=== PATIENT | female | born 1940 | race African-American/Black ===

== ENCOUNTER 2017-02-11 10:20 | Emergency (ER) | payer MEDICARE, OTHER ==
[~2017-02-11] VITALS: Ht 170.2 cm; Wt 69.5 kg
[~2017-02-11 10:20] MED LIST: ACYC200C PO; CALC-724 PO; DILT360C40 PO; FISH1CAP39 PO; INSLAN SQ; METO50 PO; MULT1TAB7 PO; TRIA1CAP2 PO; VALS80TA2 PO; VIT1CAPS2 PO; VITA1CAP PO
[2017-02-11 10:46] LABS: GLUCOSE,POINT OF CARE 185 MG/DL (70-110)
[2017-02-11 11:26] LABS: BASOPHILS % (AUTO) 0.6 % (0.0-2.0); EOSINOPHILS % (AUTO) 1.4 % (1.0-6.0); HEMATOCRIT 41.7 % (36-46); HEMOGLOBIN 13.5 g/dL (12.0-16.0); LYMPHOCYTES % (AUTO) 21.5 % (22.0-44.0); MEAN CORPUSCULAR HEMOGLOBIN 31.6 pg (26.0-34.0); MEAN CORPUSCULAR HGB CONC 32.4 G/dL (31.0-37.0); MEAN CORPUSCULAR VOLUME 97 fL (80-100); MONOCYTES # (AUTO) 0.3 K/uL (0.1-1.0); MONOCYTES % (AUTO) 5.9 % (2.0-9.0); NEUTROPHILS # (AUTO) 3.3 K/uL (1.8-7.7); NEUTROPHILS % (AUTO) 70.6 % (40.0-70.0); PLATELET COUNT (AUTO) 221 K/uL (150-450); RED BLOOD CELL COUNT(AUTO) 4.27 MIL/uL (4.00-5.20); RED CELL DISTRIBUTION WIDTH 14.4 % (11.5-14.5)
[2017-02-11 11:30] LABS: CALCIUM, TOTAL 9.4 mg/dL (8.8-10.5); CREATININE 1.49 mg/dL (0.60-1.30)
[2017-02-11 11:36] LABS: ALBUMIN 3.8 g/dL (3.4-5.0); BILIRUBIN,TOTAL 0.4 mg/dL (0.1-1.0)
[2017-02-11 11:57] LABS: GLUCOSE,POINT OF CARE 172 MG/DL (70-110)
[2017-02-11 12:54] LABS: WHITE BLOOD COUNT (AUTO) 4.7 K/uL (4.5-11.0)
[2017-02-11 13:17] LABS: GLUCOSE,POINT OF CARE 223 MG/DL (70-110)
[2017-02-11 14:57] LABS: GLUCOSE,POINT OF CARE 224 MG/DL (70-110)
[2017-02-11 15:49] VITALS: BP 144/71
== END 2017-02-11 15:50 | disposition home or self-care (01) ==
LOC: EMS 10:27
DX: E11.649 Type 2 diabetes mellitus with hypoglycemia without coma (principal); I10 Essential (primary) hypertension; Z79.4 Long term (current) use of insulin; Z88.5 Allergy status to narcotic agent; Z88.0 Allergy status to penicillin; Z88.2 Allergy status to sulfonamides; Z88.8 Allergy status to other drugs, medicaments and biological substances
CPT/HCPCS: 82962; 99285

== ENCOUNTER 2022-12-12 20:32 | Emergency (ER) | payer MEDICARE, OTHER ==
[~2022-12-12] VITALS: Ht 171.4 cm; Wt 63.6 kg
[~2022-12-12 20:32] MED LIST changes: -ACYC200C PO; +ACYC200C24 PO
[2022-12-12 20:56] LABS: GLUCOMETER DEV NAME(LOC) ERT.5; GLUCOSE,POINT OF CARE 276 MG/DL (70-110)
[2022-12-12 20:58] VITALS: BP 137/72
== END 2022-12-12 21:22 | disposition home or self-care (01) ==
LOC: EMS 20:32
DX: I10 Essential (primary) hypertension (principal); M19.90 Unspecified osteoarthritis, unspecified site; E11.9 Type 2 diabetes mellitus without complications; Z98.51 Tubal ligation status; Z88.0 Allergy status to penicillin; Z88.5 Allergy status to narcotic agent; Z88.2 Allergy status to sulfonamides; Z88.8 Allergy status to other drugs, medicaments and biological substances
CPT/HCPCS: 82962; 99282

== ENCOUNTER 2022-12-30 19:49 | Inpatient (IN) | payer MEDICARE, OTHER ==
[~2022-12-30] VITALS: Ht 170.2 cm; Wt 75.0 kg
[2022-12-30 20:50] LABS: BASOPHILS % (AUTO) 0.4 % (0.0-2.0); EOSINOPHILS % (AUTO) 0 % (1.0-6.0); HEMATOCRIT 37.7 % (36-46); HEMOGLOBIN 12.8 g/dL (12.0-16.0); LYMPHOCYTES # (AUTO) 0.2 K/uL (1.0-4.8); LYMPHOCYTES % (AUTO) 1.1 % (22.0-44.0); MEAN CORPUSCULAR HEMOGLOBIN 32.9 pg (26.0-34.0); MEAN CORPUSCULAR HGB CONC 34.1 G/dL (31.0-37.0); MEAN CORPUSCULAR VOLUME 97 fL (80-100); MONOCYTES # (AUTO) 0.6 K/uL (0.1-1.0); MONOCYTES % (AUTO) 3.6 % (2.0-9.0); PLATELET COUNT (AUTO) 195 K/uL (150-450); RED CELL DISTRIBUTION WIDTH 14.4 % (11.5-14.5)
[2022-12-30 20:52] LABS: NEUTROPHILS % (AUTO) 94.9 % (40.0-70.0)
[2022-12-30 21:04] LABS: ALBUMIN 3.3 g/dL (3.4-5.0); BILIRUBIN,TOTAL 3.5 mg/dL (0.1-1.0); CREATININE 1.26 mg/dL (0.60-1.30); POTASSIUM 3.8 mmol/L (3.5-5.1); TOTAL PROTEIN, SERUM 7.7 g/dL (6.4-8.2)
[2022-12-30 21:50] LABS: APPEARANCE,URINE CLEAR (CLEAR); BILIRUBIN,URINE NEGATIVE (NEGATIVE); GLUCOSE, URINE (UA) >=1000 mg/dL (NEGATIVE); KETONES,URINE TRACE mg/dL (NEGATIVE); LEUKOCYTE ESTERASE ,URINE NEGATIVE (NEGATIVE); NITRATE,URINE NEGATIVE (NEGATIVE); OCCULT BLOOD,URINE NEGATIVE (NEGATIVE); PH,URINE 6.5 (5.0-8.0); PROTEIN,URINE 30-70 mg/dL (NEGATIVE); SPECIFIC GRAVITIY, URINE 1.006 (1.003-1.030)
[2022-12-30 21:58] LABS: BACTERIA,URINE Rare /HPF (None Seen); RBC,URINE 0-2 /HPF (0-2); SQUAMOUS EPITHELIAL CELL,UR Few /LPF (None Seen); WBC,URINE 0-2 /HPF (0-5)
[2022-12-31 00:20] LABS: COVID AG,FIA SOURCE NASAL SWAB
[2022-12-31] MEDS ORDERED: DEXTROSE 50%-WATER 25 GM/50 ML SYRINGE IVP PRN (00:45)
[2022-12-31] MEDS ORDERED: ONDANSETRON HCL 4 MG/2 ML VIAL IVP PRN (00:45)
[2022-12-31] MEDS ORDERED: ACETAMINOPHEN 325 MG TABLET PO PRN (00:45)
[2022-12-31] MEDS ORDERED: MetroNIDAZOLE 500 MG/NACL 100 ML IV ONE ×2 (00:45→02:15)
[2022-12-31] MEDS ORDERED: SODIUM CHLORIDE 0.9% 250 ML IV ONE (00:45)
[2022-12-31] MEDS ORDERED: LEVOFLOXACIN 500 MG/D5% WATER 100 ML IV ONE ×2 (00:45→02:15)
[2022-12-31] MEDS ORDERED: MORPHINE SULFATE 2 MG/ML SYRINGE IVP PRN (00:45)
[2022-12-31] MEDS: SODIUM CHLORIDE 0.9% 1,000 ML IV SCH ×2 (01:05→14:21)
[2022-12-31] MEDS ORDERED: IOHEXOL 350 MG/ML 100 ML VIAL ONE (02:32)
[2022-12-31] MEDS ORDERED: SODIUM CHLORIDE 0.9% 100 ML ONE (02:32)
[2022-12-31] MEDS ORDERED: HYDR25TA84 PO (02:42)
[2022-12-31] MEDS ORDERED: NIFE-46 PO (02:42)
[2022-12-31] MEDS ORDERED: XALA2.5OS OU (02:42)
[2022-12-31] MEDS ORDERED: INSLAN SQ (02:42)
[2022-12-31] MEDS ORDERED: MAGN64TA7 PO (02:42)
[2022-12-31] MEDS ORDERED: METO25 PO (02:42)
[2022-12-31] MEDS ORDERED: ATOR10TA PO (02:42)
[2022-12-31] MEDS ORDERED: LOSA-382 PO (02:42)
[2022-12-31] MEDS ORDERED: ACET-3385 PO (02:42)
[2022-12-31] MEDS ORDERED: ASPI81TA49 PO (02:42)
[2022-12-31] MEDS ORDERED: ACYCLOVIR 200 MG CAPSULE PO SCH (09:00)
[2022-12-31] MEDS ORDERED: METOPROLOL TARTRATE 50 MG TABLET PO SCH (09:00)
[2022-12-31] MEDS ORDERED: CALCIUM OYSTER SHELL 250 MG-VIT D3 125 UNITS[3.125MCG] TABLET PO SCH (09:00)
[2022-12-31] MEDS: DOCUSATE SODIUM 100 MG CAPSULE PO SCH ×2 (09:31→20:34)
[2022-12-31] MEDS: METOPROLOL TARTRATE 25 MG TABLET PO SCH ×2 (09:32→20:34)
[2022-12-31] MEDS: MULTIVITAMINS WITH MINERALS, THERAPEUTIC TABLET PO SCH (09:32)
[2022-12-31] MEDS: VALSARTAN 80 MG TABLET PO SCH ×2 (09:32→20:35)
[2022-12-31] MEDS: VITAMIN B COMPLEX/FOLIC ACID 1 TABLET PO SCH (09:33)
[2022-12-31] MEDS: TRIAMTERENE/HCTZ 37.5-25 MG CAPSULE PO SCH (09:33)
[2022-12-31] MEDS: DILTIAZEM HCL CD 180 MG ER CAPSULE PO SCH (09:33)
[2022-12-31] MEDS: OMEGA-3/DHA/EPA/FISH OIL 1,000 MG CAPSULE PO SCH (09:33)
[2022-12-31 13:54] VITALS: BP 122/62
[2022-12-31] MEDS ORDERED: OMEG-136 PO (15:09)
[2022-12-31] MEDS ORDERED: MULT-1259 PO (15:09)
[2022-12-31] MEDS ORDERED: CALC-1000 PO (15:09)
[2022-12-31] MEDS ORDERED: VITA1TAB22 PO (15:09)
[2022-12-31] MEDS ORDERED: TRIA1CAP87 PO (15:09)
[2022-12-31] MEDS ORDERED: MULT-38 PEG (15:09)
[2022-12-31] MEDS ORDERED: DILT-95 PO (15:09)
[2022-12-31] MEDS ORDERED: PNEUMOCOCCAL VACCINE POLYVALENT 0.5 ML VIAL [PPSV23] IM. ONE (15:15)
[2022-12-31] MEDS ORDERED: *CLINICAL-RX DOSING [ENTER DRUG IN COMMENTS] CLINICAL ONE (18:30)
[2022-12-31] MEDS ORDERED: *CLINICAL-LEVOFLOXACIN IVPB DOSING CLINICAL ONE (18:30)
[2022-12-31] MEDS ORDERED: *CLINICAL-AZTREONAM DOSING CLINICAL ONE (18:30)
[2022-12-31 19:01] LABS: GLUCOMETER DEV NAME(LOC) 6N.2B; GLUCOSE,POINT OF CARE 121 MG/DL (70-110)
[2022-12-31 20:06] VITALS: BP 136/62
[2022-12-31] MEDS: AZTREONAM 1 GM in DEXTROSE 5%-WATER 50 ML IV SCH (20:34)
[2022-12-31] MEDS: INSULIN GLARGINE,HUM.REC.ANLOG 100 UNITS/ML SQ SCH (20:40)
[2022-12-31] MEDS ORDERED: INSULIN GLARGINE,HUM.REC.ANLOG 100 UNITS/ML SQ SCH (21:00)
[2022-12-31] MEDS ORDERED: MetroNIDAZOLE 500 MG TABLET PO SCH (21:00)
[2023-01-01 01:01] LABS: GLUCOMETER DEV NAME(LOC) 6N.1; GLUCOSE,POINT OF CARE 101 MG/DL (70-110)
[2023-01-01] MEDS: AZTREONAM 1 GM in DEXTROSE 5%-WATER 50 ML IV SCH ×3 (04:30→20:13)
[2023-01-01] MEDS: SODIUM CHLORIDE 0.9% 1,000 ML IV SCH (04:31)
[2023-01-01 05:16] VITALS: BP 133/69
[2023-01-01 06:46] LABS: GLUCOMETER DEV NAME(LOC) 6N.1; GLUCOSE,POINT OF CARE 128 MG/DL (70-110)
[2023-01-01 07:26] LABS: BASOPHILS % (AUTO) 0.2 % (0.0-2.0); EOSINOPHILS % (AUTO) 0.6 % (1.0-6.0); HEMOGLOBIN 12.3 g/dL (12.0-16.0); LYMPHOCYTES # (AUTO) 0.6 K/uL (1.0-4.8); LYMPHOCYTES % (AUTO) 8.6 % (22.0-44.0); MEAN CORPUSCULAR HEMOGLOBIN 33.2 pg (26.0-34.0); MEAN CORPUSCULAR HGB CONC 34.1 G/dL (31.0-37.0); MEAN CORPUSCULAR VOLUME 97 fL (80-100); MONOCYTES % (AUTO) 13.8 % (2.0-9.0); NEUTROPHILS # (AUTO) 5.7 K/uL (1.8-7.7); NEUTROPHILS % (AUTO) 76.8 % (40.0-70.0); PLATELET COUNT (AUTO) 171 K/uL (150-450); RED CELL DISTRIBUTION WIDTH 15.1 % (11.5-14.5)
[2023-01-01 07:27] VITALS: BP 133/66
[2023-01-01 07:51] LABS: ALANINE AMINOTRANSFERASE 100 U/L (12-78); ALBUMIN 2.5 g/dL (3.4-5.0); ALKALINE PHOSPHATASE 217 U/L (46-116); ANION GAP 14 mmol/L (8-16); ASPARTATE AMINOTRANSFERASE 77 U/L (15-37); BILIRUBIN,TOTAL 3.8 mg/dL (0.1-1.0); CALCIUM, TOTAL 8.8 mg/dL (8.8-10.5); CARBON DIOXIDE 18 mmol/L (22-29); CHLORIDE 103 mmol/L (98-107); CREATININE 1.01 mg/dL (0.60-1.30); GLOMERULAR FILTR. RATE CALC > 60 mL/min (>60); GLUCOSE,RANDOM 113 mg/dL (70-110); POTASSIUM 3.5 mmol/L (3.5-5.1); SODIUM SERUM 135 mmol/L (136-145); TOTAL PROTEIN, SERUM 6.5 g/dL (6.4-8.2); UREA NITROGEN, BLOOD 11 mg/dL (7-18)
[2023-01-01] MEDS: HEPARIN SODIUM,PORCINE 5,000 UNITS/ML VIAL SQ SCH ×3 (08:00→23:34)
[2023-01-01] MEDS: DILTIAZEM HCL CD 180 MG ER CAPSULE PO SCH (08:39)
[2023-01-01] MEDS: MetroNIDAZOLE 500 MG TABLET PO SCH ×3 (08:39→23:34)
[2023-01-01] MEDS: TRIAMTERENE/HCTZ 37.5-25 MG CAPSULE PO SCH (08:39)
[2023-01-01] MEDS: MULTIVITAMINS WITH MINERALS, THERAPEUTIC TABLET PO SCH (08:39)
[2023-01-01] MEDS: VALSARTAN 80 MG TABLET PO SCH ×2 (08:39→20:13)
[2023-01-01] MEDS: METOPROLOL TARTRATE 25 MG TABLET PO SCH ×2 (08:39→20:13)
[2023-01-01] MEDS: DOCUSATE SODIUM 100 MG CAPSULE PO SCH ×2 (08:39→20:13)
[2023-01-01] MEDS: VITAMIN B COMPLEX/FOLIC ACID 1 TABLET PO SCH (08:39)
[2023-01-01] MEDS: OMEGA-3/DHA/EPA/FISH OIL 1,000 MG CAPSULE PO SCH (08:39)
[2023-01-01] MEDS ORDERED: MEBROFENIN TC99M/MCL ISOTOPE 1 EA INJ INJ ONE (08:50)
[2023-01-01] MEDS ORDERED: SODIUM CHLORIDE 0.9% 1,000 ML ONE (09:55)
[2023-01-01] MEDS ORDERED: SODIUM CHLORIDE 0.9% 1,000 ML IV ONE (12:00)
[2023-01-01] MEDS ORDERED: ONDANSETRON HCL 4 MG/2 ML VIAL IVP ONE (12:00)
[2023-01-01] MEDS ORDERED: LIDOCAINE/PF 2% 5 ML VIAL IM ONE (12:00)
[2023-01-01] MEDS ORDERED: FentaNYL CITRATE PF 100 MCG/2 ML VIAL IVP ONE (12:00)
[2023-01-01] MEDS ORDERED: ROCURONIUM BROMIDE 10 MG/ML 5 ML VIAL IVP ONE (12:00)
[2023-01-01] MEDS ORDERED: GLYCOPYRROLATE 0.2 MG/ML VIAL IM ONE (12:00)
[2023-01-01] MEDS ORDERED: PROPOFOL 1% 20 ML VIAL IVP ONE (12:00)
[2023-01-01 13:26] LABS: GLUCOMETER DEV NAME(LOC) 6N.2B; GLUCOSE,POINT OF CARE 120 MG/DL (70-110)
[2023-01-01] MEDS ORDERED: SUGAMMADEX SODIUM 200 MG/2 ML VIAL IVP ONE (14:56)
[2023-01-01] MEDS ORDERED: FentaNYL CITRATE PF 100 MCG/2 ML VIAL IVP PRN (15:30)
[2023-01-01 16:49] VITALS: BP 138/66
[2023-01-01] MEDS ORDERED: BENZOCAINE/MENTHOL LOZENGE [6 LOZENGES/PACKET] PO PRN (17:15)
[2023-01-01] MEDS ORDERED: BENZOCAINE/MENTHOL LOZENGE PO PRN (17:15)
[2023-01-01 18:11] LABS: GLUCOMETER DEV NAME(LOC) 6N.2B; GLUCOSE,POINT OF CARE 193 MG/DL (70-110)
[2023-01-01 19:35] VITALS: BP 135/79
[2023-01-01] MEDS: INSULIN LISPRO 100 UNITS/ML SQ PRN (20:25)
[2023-01-01] MEDS: INSULIN GLARGINE,HUM.REC.ANLOG 100 UNITS/ML SQ SCH (20:26)
[2023-01-01] MEDS ORDERED: LEVOFLOXACIN 500 MG/D5% WATER 100 ML IV SCH (22:00)
[2023-01-01 23:41] LABS: GLUCOMETER DEV NAME(LOC) 6N.1; GLUCOSE,POINT OF CARE 179 MG/DL (70-110)
[2023-01-02] MEDS: SODIUM CHLORIDE 0.9% 1,000 ML IV SCH ×3 (01:51→20:46)
[2023-01-02] MEDS: AZTREONAM 1 GM in DEXTROSE 5%-WATER 50 ML IV SCH ×3 (04:08→21:55)
[2023-01-02] MEDS: INSULIN LISPRO 100 UNITS/ML SQ PRN ×4 (05:43→20:40)
[2023-01-02 05:49] VITALS: BP 139/74
[2023-01-02 05:56] LABS: GLUCOMETER DEV NAME(LOC) 6N.1; GLUCOSE,POINT OF CARE 153 MG/DL (70-110)
[2023-01-02] MEDS ORDERED: LEVOFLOXACIN 750 MG/D5% WATER 150 ML IV SCH (06:00)
[2023-01-02] MEDS: HEPARIN SODIUM,PORCINE 5,000 UNITS/ML VIAL SQ SCH ×2 (08:00→11:50)
[2023-01-02] MEDS: OXYGEN THERAPY IH SCH ×2 (08:00→20:50)
[2023-01-02 08:44] VITALS: BP 155/77
[2023-01-02] MEDS: MULTIVITAMINS WITH MINERALS, THERAPEUTIC TABLET PO SCH (09:00)
[2023-01-02] MEDS: OMEGA-3/DHA/EPA/FISH OIL 1,000 MG CAPSULE PO SCH (09:00)
[2023-01-02] MEDS: VITAMIN B COMPLEX/FOLIC ACID 1 TABLET PO SCH (09:00)
[2023-01-02] MEDS: DOCUSATE SODIUM 100 MG CAPSULE PO SCH ×2 (09:00→20:46)
[2023-01-02] MEDS: METOPROLOL TARTRATE 25 MG TABLET PO SCH (09:11)
[2023-01-02] MEDS: DILTIAZEM HCL CD 180 MG ER CAPSULE PO SCH (09:11)
[2023-01-02] MEDS: TRIAMTERENE/HCTZ 37.5-25 MG CAPSULE PO SCH (09:11)
[2023-01-02] MEDS: VALSARTAN 80 MG TABLET PO SCH ×2 (09:11→21:55)
[2023-01-02] MEDS: MetroNIDAZOLE 500 MG TABLET PO SCH ×2 (09:11→20:46)
[2023-01-02 09:24] LABS: BASOPHILS % (AUTO) 0.3 % (0.0-2.0); EOSINOPHILS % (AUTO) 0.4 % (1.0-6.0); HEMATOCRIT 34.6 % (36-46); HEMOGLOBIN 11.8 g/dL (12.0-16.0); LYMPHOCYTES # (AUTO) 0.6 K/uL (1.0-4.8); LYMPHOCYTES % (AUTO) 9.8 % (22.0-44.0); MEAN CORPUSCULAR HEMOGLOBIN 32.9 pg (26.0-34.0); MEAN CORPUSCULAR VOLUME 97 fL (80-100); MONOCYTES # (AUTO) 0.9 K/uL (0.1-1.0); MONOCYTES % (AUTO) 14.4 % (2.0-9.0); NEUTROPHILS # (AUTO) 4.8 K/uL (1.8-7.7); NEUTROPHILS % (AUTO) 75.1 % (40.0-70.0); PLATELET COUNT (AUTO) 179 K/uL (150-450); RED BLOOD CELL COUNT(AUTO) 3.57 MIL/uL (4.00-5.20); RED CELL DISTRIBUTION WIDTH 14.8 % (11.5-14.5)
[2023-01-02 16:00] VITALS: BP 146/71
[2023-01-02 18:02] LABS: GLUCOMETER DEV NAME(LOC) 5S.2C; GLUCOSE,POINT OF CARE 162 MG/DL (70-110)
[2023-01-02 19:58] VITALS: BP 157/78
[2023-01-02] MEDS: INSULIN GLARGINE,HUM.REC.ANLOG 100 UNITS/ML SQ SCH (21:00)
[2023-01-02] MEDS ORDERED: METOPROLOL TARTRATE 25 MG TABLET PO SCH (21:00)
[2023-01-02 21:36] LABS: GLUCOMETER DEV NAME(LOC) 5N.1C; GLUCOSE,POINT OF CARE 125 MG/DL (70-110)
[2023-01-02 23:53] VITALS: BP 153/77
[2023-01-03] MEDS: MetroNIDAZOLE 500 MG TABLET PO SCH (03:37)
[2023-01-03 04:20] VITALS: BP 153/82
[2023-01-03] MEDS: AZTREONAM 1 GM in DEXTROSE 5%-WATER 50 ML IV SCH (04:30)
[2023-01-03 04:36] LABS: GLUCOMETER DEV NAME(LOC) 6N.1; GLUCOSE,POINT OF CARE 131 MG/DL (70-110)
[2023-01-03] MEDS: INSULIN LISPRO 100 UNITS/ML SQ PRN (05:53)
[2023-01-03 06:34] LABS: BASOPHILS % (AUTO) 0.7 % (0.0-2.0); EOSINOPHILS % (AUTO) 1.7 % (1.0-6.0); HEMATOCRIT 35.2 % (36-46); HEMOGLOBIN 11.8 g/dL (12.0-16.0); LYMPHOCYTES # (AUTO) 0.8 K/uL (1.0-4.8); LYMPHOCYTES % (AUTO) 15.9 % (22.0-44.0); MEAN CORPUSCULAR HEMOGLOBIN 32.5 pg (26.0-34.0); MEAN CORPUSCULAR HGB CONC 33.7 G/dL (31.0-37.0); MEAN CORPUSCULAR VOLUME 97 fL (80-100); MONOCYTES # (AUTO) 0.6 K/uL (0.1-1.0); MONOCYTES % (AUTO) 13.7 % (2.0-9.0); NEUTROPHILS # (AUTO) 3.2 K/uL (1.8-7.7); PLATELET COUNT (AUTO) 196 K/uL (150-450); RED BLOOD CELL COUNT(AUTO) 3.65 MIL/uL (4.00-5.20); RED CELL DISTRIBUTION WIDTH 14.9 % (11.5-14.5)
[2023-01-03 06:44] LABS: ANION GAP 11 mmol/L (8-16); CALCIUM, TOTAL 8.3 mg/dL (8.8-10.5); CARBON DIOXIDE 20 mmol/L (22-29); CHLORIDE 105 mmol/L (98-107); CREATININE 0.92 mg/dL (0.60-1.30); GLOMERULAR FILTR. RATE CALC > 60 mL/min (>60); GLUCOSE,RANDOM 153 mg/dL (70-110); SODIUM SERUM 136 mmol/L (136-145); UREA NITROGEN, BLOOD 8 mg/dL (7-18)
[2023-01-03 08:04] VITALS: BP 154/76
[2023-01-03] MEDS ORDERED: RINGERS SOLUTION,LACTATED 1,000 ML IV ONE (08:15)
[2023-01-03] MEDS ORDERED: POTASSIUM CHLORIDE 20 MEQ ER TABLET PO PRN (08:45)
[2023-01-03] MEDS ORDERED: POTASSIUM CHL 10 MEQ/WATER 50 ML IV PRN (08:45)
[2023-01-03] MEDS ORDERED: NIFEdipine 60 MG ER TABLET PO SCH (09:00)
[2023-01-03] MEDS: POTASSIUM CHL 10 MEQ/WATER 50 ML IV PRN ×2 (09:04→10:17)
[2023-01-03] MEDS: HEPARIN SODIUM,PORCINE 5,000 UNITS/ML VIAL SQ SCH ×2 (09:09)
[2023-01-03] MEDS ORDERED: METR500 PO (11:08)
[2023-01-03] MEDS ORDERED: LEVO750T68 PO (11:08)
[2023-01-03 11:32] LABS: GLUCOMETER DEV NAME(LOC) 5S.2C; GLUCOSE,POINT OF CARE 149 MG/DL (70-110)
== END 2023-01-03 11:30 | disposition home or self-care (01) | DRG 444 ==
LOC: EMS 19:53 → 5S 12-31 13:30 → 6S 12-31 13:40 → 5S 01-02 15:39
PROVIDERS: ADMIT Internal Medicine; ATTEND Hospitalist
PROC: BF101ZZ Fluoroscopy of Bile Ducts using Low Osmolar Contrast (ICD-10-PCS; 2023-01-01)
PROC: 0FC98ZZ Extirpation of Matter from Common Bile Duct, Via Natural or Artificial Opening Endoscopic (ICD-10-PCS; principal; 2023-01-01 14:15)
DX: K80.63 Calculus of gallbladder and bile duct with acute cholecystitis with obstruction (principal); G93.41 Metabolic encephalopathy; E87.1 Hypo-osmolality and hyponatremia; R65.10 Systemic inflammatory response syndrome (SIRS) of non-infectious origin without acute organ dysfunction; R78.81 Bacteremia; K83.09 Other cholangitis; E11.65 Type 2 diabetes mellitus with hyperglycemia; I10 Essential (primary) hypertension; B96.20 Unspecified Escherichia coli [E. coli] as the cause of diseases classified elsewhere; E78.5 Hyperlipidemia, unspecified; E87.6 Hypokalemia; G89.29 Other chronic pain; F41.9 Anxiety disorder, unspecified; Z20.822 Contact with and (suspected) exposure to COVID-19; Z82.49 Family history of ischemic heart disease and other diseases of the circulatory system; Z79.4 Long term (current) use of insulin; Z83.3 Family history of diabetes mellitus; Z87.440 Personal history of urinary (tract) infections; Z88.0 Allergy status to penicillin; Z88.2 Allergy status to sulfonamides; Z88.6 Allergy status to analgesic agent; Z90.710 Acquired absence of both cervix and uterus; Z88.1 Allergy status to other antibiotic agents
CPT/HCPCS: 74177; 74181; 76700; 78226; 80048; 80053; 81001; 82962; 83605; 83690; 84484; 85025; 87040; 87077; 87081; 87205; 93005; 93306; 99285; A9537; G0238; J1644; J1815; J1956; J2405; J2704; J3010; J3480; J3490; J7030; J7050; J7060; Q9967

== ENCOUNTER 2025-03-09 15:42 | Emergency (ER) | payer MEDICARE, OTHER ==
[~2025-03-09] VITALS: Ht 171.4 cm; Wt 65.9 kg
[~2025-03-09 15:42] MED LIST changes: -ACYC200C24 PO; +AMLO-257 PO; +ATOR10TA69 PO; +CALC-1000 PO; -CALC-724 PO; -DILT360C40 PO; -FISH1CAP39 PO; +LOSA-382 PO; +METF-1211 PO; -METO50 PO; +MULT-1259 PO; -MULT1TAB7 PO; +NIFE90TA65 PO; +OMEG-136 PO; -TRIA1CAP2 PO; -VALS80TA2 PO; -VIT1CAPS2 PO; -VITA1CAP PO; +XALA2.5OS OU; +[UNRECOGNIZED DRUG - CODE] PO
[2025-03-09 15:45] VITALS: BP 102/50; PULSE 91; RESP 18; TEMP 97.7; O2SAT 97
[2025-03-09] MEDS: NAPROXEN 500 MG TABLET PO ONE (16:28)
== END 2025-03-09 17:00 | disposition home or self-care (01) ==
LOC: EMS 15:45
DX: M54.50 Low back pain, unspecified (principal); G89.29 Other chronic pain; F41.9 Anxiety disorder, unspecified; E11.9 Type 2 diabetes mellitus without complications; I10 Essential (primary) hypertension; M19.90 Unspecified osteoarthritis, unspecified site; N28.89 Other specified disorders of kidney and ureter; Z90.710 Acquired absence of both cervix and uterus; Z88.7 Allergy status to serum and vaccine; Z88.5 Allergy status to narcotic agent; Z88.2 Allergy status to sulfonamides; Z88.0 Allergy status to penicillin; Z79.4 Long term (current) use of insulin; Z79.899 Other long term (current) drug therapy; Z98.890 Other specified postprocedural states
CPT/HCPCS: 82962; 99282

== ENCOUNTER 2025-03-30 20:59 | Emergency (ER) | payer MEDICARE, OTHER ==
[~2025-03-30] VITALS: Ht 170.2 cm; Wt 65.9 kg
[~2025-03-30 20:59] MED LIST changes: -AMLO-257 PO; -CALC-1000 PO; -INSLAN SQ; -XALA2.5OS OU
[2025-03-30 21:06] VITALS: BP 164/78; PULSE 104; RESP 15; TEMP 98.1; O2SAT 99
[2025-03-30 21:22] LABS: COVID AG,FIA SOURCE NASAL SWAB
[2025-03-30 21:26] LABS: GLUCOMETER DEV NAME(LOC) ER.7; GLUCOSE,POINT OF CARE 273 MG/DL (70-110)
[2025-03-30 21:42] LABS: INFLUENZA TYPE A NEGATIVE FOR TYPE A (NEGATIVE); INFLUENZA TYPE B NEGATIVE FOR TYPE B (NEGATIVE); SARS-COV2 (COVID) ANTIGEN,FIA Negative (Negative)
== END 2025-03-30 21:36 | disposition left against medical advice (07) ==
LOC: EMS 20:59
DX: R53.1 Weakness (principal); R50.9 Fever, unspecified; Z20.822 Contact with and (suspected) exposure to COVID-19; Z53.21 Procedure and treatment not carried out due to patient leaving prior to being seen by health care provider
CPT/HCPCS: 82962; 87804

== ENCOUNTER 2025-08-12 14:12 | Emergency (ER) | payer MEDICARE, OTHER ==
[~2025-08-12] VITALS: Ht 171.4 cm; Wt 65.9 kg
[~2025-08-12 14:12] MED LIST changes: +AMLO-257 PO; +CEFD300C18 PO; -LOSA-382 PO; +MELA3TAB89 PO; -NIFE90TA65 PO; +OMEG-131 PO; -OMEG-136 PO
[2025-08-12] MEDS ORDERED: CHOL25TA4 PO (14:22)
[2025-08-12] MEDS ORDERED: NIFE90TA91 PO (14:22)
[2025-08-12 14:41] LABS: GLUCOMETER DEV NAME(LOC) ERT.7; GLUCOSE,POINT OF CARE 333 MG/DL (70-110)
[2025-08-12 15:53] LABS: PLATELET COUNT (AUTO) 252 K/uL (150-450); RED BLOOD CELL COUNT(AUTO) 3.87 MIL/uL (4.00-5.20); RED CELL DISTRIBUTION WIDTH 14.9 % (11.5-14.5); WHITE BLOOD COUNT (AUTO) 6.5 K/uL (4.5-11.0)
[2025-08-12 15:59] LABS: CALCIUM, TOTAL 9.5 mg/dL (8.8-10.5); CREATININE 1.55 mg/dL (0.60-1.30); GLOMERULAR FILTR. RATE CALC 38.0 mL/min (>60); GLUCOSE,RANDOM 322.0 mg/dL (70-110); SODIUM SERUM 136.0 mmol/L (136-145); UREA NITROGEN, BLOOD 13.0 mg/dL (7-18)
[2025-08-12 16:04] LABS: ASPARTATE AMINOTRANSFERASE 16.0 U/L (15-37); TOTAL PROTEIN, SERUM 8.3 g/dL (6.4-8.2)
[2025-08-12 16:09] LABS: APPEARANCE,URINE HAZY (CLEAR); GLUCOSE, URINE (UA) 300-500 mg/dL (NEGATIVE); LEUKOCYTE ESTERASE ,URINE NEGATIVE (NEGATIVE); NITRATE,URINE NEGATIVE (NEGATIVE); OCCULT BLOOD,URINE NEGATIVE (NEGATIVE); SPECIFIC GRAVITIY, URINE 1.027 (1.003-1.030)
[2025-08-12 16:19] LABS: SQUAMOUS EPITHELIAL CELL,UR Moderate /LPF (None Seen)
[2025-08-12] MEDS: SODIUM CHLORIDE 0.9% 1,000 ML IV ONE (17:02)
[2025-08-12 19:10] VITALS: BP 112/60; PULSE 100; RESP 18; TEMP 97.5; O2SAT 98
== END 2025-08-12 19:59 | disposition home or self-care (01) ==
LOC: EMS 14:12
DX: E11.65 Type 2 diabetes mellitus with hyperglycemia (principal); R10.31 Right lower quadrant pain; F41.9 Anxiety disorder, unspecified; M19.90 Unspecified osteoarthritis, unspecified site; Z79.84 Long term (current) use of oral hypoglycemic drugs; Z79.899 Other long term (current) drug therapy; Z88.0 Allergy status to penicillin; Z88.2 Allergy status to sulfonamides; Z88.5 Allergy status to narcotic agent; Z88.7 Allergy status to serum and vaccine; Z90.710 Acquired absence of both cervix and uterus
CPT/HCPCS: 99284; 96360; 80053; 81001; 82962; 85025; 87086; 36415; J7030

== ENCOUNTER 2025-08-17 15:36 | Emergency (ER) | payer MEDICARE, OTHER ==
[~2025-08-17] VITALS: Ht 175.3 cm; Wt 84.1 kg
[~2025-08-17 15:36] MED LIST changes: -AMLO-257 PO; -CEFD300C18 PO; +CHOL25TA4 PO; -MELA3TAB89 PO; +NIFE90TA91 PO; -OMEG-131 PO; -[UNRECOGNIZED DRUG - CODE] PO
[2025-08-17 17:04] LABS: PLATELET COUNT (AUTO) 247 K/uL (150-450); RED BLOOD CELL COUNT(AUTO) 3.63 MIL/uL (4.00-5.20); RED CELL DISTRIBUTION WIDTH 15.4 % (11.5-14.5); WHITE BLOOD COUNT (AUTO) 5.5 K/uL (4.5-11.0)
[2025-08-17 17:11] LABS: CALCIUM, TOTAL 8.9 mg/dL (8.8-10.5); CREATININE 1.33 mg/dL (0.60-1.30); GLOMERULAR FILTR. RATE CALC 46 mL/min (>60); GLUCOSE,RANDOM 207 mg/dL (70-110); SODIUM SERUM 133 mmol/L (136-145); UREA NITROGEN, BLOOD 9 mg/dL (7-18)
[2025-08-17 17:21] LABS: LACTIC ACID 2.2 mmol/L (0.4-2.0); TROPONIN I-HIGH SENSITIVITY Less Than 4 ng/L (<51)
[2025-08-17 17:41] LABS: GLUCOMETER DEV NAME(LOC) ER.7; GLUCOSE,POINT OF CARE 181 MG/DL (70-110)
[2025-08-17 17:50] LABS: APPEARANCE,URINE HAZY (CLEAR); GLUCOSE, URINE (UA) TRACE mg/dL (NEGATIVE); LEUKOCYTE ESTERASE ,URINE NEGATIVE (NEGATIVE); NITRATE,URINE NEGATIVE (NEGATIVE); OCCULT BLOOD,URINE NEGATIVE (NEGATIVE); SPECIFIC GRAVITIY, URINE 1.008 (1.003-1.030)
[2025-08-17] MEDS: SODIUM CHLORIDE 0.9% 1,000 ML IV ONE (17:54)
[2025-08-17 20:06] VITALS: BP 156/75; PULSE 98; RESP 14; TEMP 98.5; O2SAT 99
== END 2025-08-17 20:07 | disposition home or self-care (01) ==
LOC: EMS 15:36 → CANBEDREQ 19:48 → EMS 20:07
DX: F03.90 Unspecified dementia, unspecified severity, without behavioral disturbance, psychotic disturbance, mood disturbance, and anxiety (principal); E11.9 Type 2 diabetes mellitus without complications; I10 Essential (primary) hypertension; M19.90 Unspecified osteoarthritis, unspecified site; Z88.0 Allergy status to penicillin; Z88.2 Allergy status to sulfonamides; Z88.5 Allergy status to narcotic agent; Z90.710 Acquired absence of both cervix and uterus; Z99.3 Dependence on wheelchair; Z88.7 Allergy status to serum and vaccine; Z79.899 Other long term (current) drug therapy; Z98.890 Other specified postprocedural states
CPT/HCPCS: 71045; 80048; 81003; 82962; 83605; 83880; 84484; 85025; 93005; 96360; 96361; 99285; J7030; 36415-L1; 36415-TC

== ENCOUNTER 2025-09-05 15:54 | Emergency (ER) | payer MEDICARE, OTHER ==
[~2025-09-05] VITALS: Ht 172.7 cm; Wt 60.0 kg
[2025-09-05 15:58] VITALS: TEMP 98
[2025-09-05 17:19] LABS: PLATELET COUNT (AUTO) 261 K/uL (150-450); RED BLOOD CELL COUNT(AUTO) 3.74 MIL/uL (4.00-5.20); RED CELL DISTRIBUTION WIDTH 15.3 % (11.5-14.5); WHITE BLOOD COUNT (AUTO) 7.0 K/uL (4.5-11.0)
[2025-09-05 17:25] LABS: CALCIUM, TOTAL 9.3 mg/dL (8.8-10.5); CREATININE 1.35 mg/dL (0.60-1.30); GLOMERULAR FILTR. RATE CALC 45 mL/min (>60); GLUCOSE,RANDOM 232 mg/dL (70-110); SODIUM SERUM 134 mmol/L (136-145); UREA NITROGEN, BLOOD 12 mg/dL (7-18)
[2025-09-05 17:35] LABS: TROPONIN I-HIGH SENSITIVITY 12 ng/L (<51)
[2025-09-05 18:08] LABS: APPEARANCE,URINE CLEAR (CLEAR); GLUCOSE, URINE (UA) 150-200 mg/dL (NEGATIVE); LEUKOCYTE ESTERASE ,URINE NEGATIVE (NEGATIVE); NITRATE,URINE NEGATIVE (NEGATIVE); OCCULT BLOOD,URINE NEGATIVE (NEGATIVE); SPECIFIC GRAVITIY, URINE 1.010 (1.003-1.030)
[2025-09-05 18:25] LABS: SQUAMOUS EPITHELIAL CELL,UR Few /LPF (None Seen); YEAST,URINE None Seen /HPF (None Seen)
[2025-09-05 19:13] VITALS: BP 130/72; PULSE 80; RESP 16; O2SAT 100
== END 2025-09-05 19:35 | disposition home or self-care (01) ==
LOC: EMS 15:54
DX: F03.94 Unspecified dementia, unspecified severity, with anxiety (principal); I12.9 Hypertensive chronic kidney disease with stage 1 through stage 4 chronic kidney disease, or unspecified chronic kidney disease; N18.9 Chronic kidney disease, unspecified; E11.22 Type 2 diabetes mellitus with diabetic chronic kidney disease; M19.90 Unspecified osteoarthritis, unspecified site; Z98.890 Other specified postprocedural states; Z88.0 Allergy status to penicillin; Z88.2 Allergy status to sulfonamides; Z88.5 Allergy status to narcotic agent; Z88.7 Allergy status to serum and vaccine; Z90.710 Acquired absence of both cervix and uterus; Z98.51 Tubal ligation status
CPT/HCPCS: 80048; 81001; 84484; 85025; 99283